=== PATIENT | female | born 1985 | race Caucasian/White ===

== ENCOUNTER 2017-10-29 17:02 | Observation (INO) | payer OTHER ==
[2017-10-29] MEDS ORDERED: GLYB2.5 PO (17:29)
[2017-10-29] MEDS ORDERED: FOLI1 PO (17:29)
[2017-10-29] MEDS ORDERED: PNV11TAB PO (17:29)
[2017-10-29] MEDS ORDERED: METHY250 PO (17:29)
[2017-10-29 17:30] VITALS: BP 159/83
[2017-10-29] MEDS ORDERED: BETAMETHASONE SOLUSPAN 6 MG/ML 5 ML VIAL IM SCH (17:30)
[2017-10-29] MEDS: NIFEdipine 10 MG CAPSULE PO SCH ×2 (17:50→22:00)
[2017-10-29 18:22] LABS: BASOPHILS % (AUTO) 0.3 % (0.0-2.0); EOSINOPHILS % (AUTO) 0.5 % (1.0-6.0); HEMATOCRIT 39.5 % (36-46); LYMPHOCYTES # (AUTO) 2.8 K/uL (1.0-4.8); MEAN CORPUSCULAR HEMOGLOBIN 34.2 pg (26.0-34.0); MEAN CORPUSCULAR HGB CONC 35.4 G/dL (31.0-37.0); MEAN CORPUSCULAR VOLUME 97 fL (80-100); MONOCYTES % (AUTO) 8.4 % (2.0-9.0); NEUTROPHILS # (AUTO) 8.3 K/uL (1.8-7.7); NEUTROPHILS % (AUTO) 67.8 % (40.0-70.0); PLATELET COUNT (AUTO) 220 K/uL (150-450); RED CELL DISTRIBUTION WIDTH 14.1 % (11.5-14.5)
[2017-10-29 18:33] LABS: ANION GAP 11 mmol/L (8-16); CALCIUM, TOTAL 8.7 mg/dL (8.8-10.5); CARBON DIOXIDE 23 mmol/L (22-29); CHLORIDE 103 mmol/L (98-107); CREATININE 0.62 mg/dL (0.60-1.30); GLOMERULAR FILTR. RATE CALC > 60 mL/min (>60); GLUCOSE,RANDOM 70 mg/dL (70-110); SODIUM SERUM 137 mmol/L (136-145); UREA NITROGEN, BLOOD 13 mg/dL (7-18)
[2017-10-29 18:47] LABS: ALANINE AMINOTRANSFERASE 28 U/L (12-78); ALBUMIN 2.4 g/dL (3.4-5.0); ALKALINE PHOSPHATASE 91 U/L (46-116); ASPARTATE AMINOTRANSFERASE 20 U/L (15-37); BILIRUBIN,TOTAL 0.2 mg/dL (0.1-1.0); FREE T4 (FREE THYROXINE) 0.57 ng/dL (0.76-1.46); THYROID STIMULATING HORMONE 5.29 uIU/mL (0.36-3.74); TOTAL PROTEIN, SERUM 6.1 g/dL (6.4-8.2)
[2017-10-29 19:00] LABS: URIC ACID 6.5 mg/dL (2.6-7.2)
[2017-10-29] MEDS: RINGERS SOLUTION,LACTATED 1,000 ML IV SCH ×2 (19:07→23:20)
[2017-10-29] MEDS ORDERED: METHYLDOPA 250 MG TABLET PO SCH (19:30)
[2017-10-29] MEDS ORDERED: NIFEdipine 10 MG CAPSULE PO ONE ×3 (19:45→22:45)
[2017-10-30] MEDS: NIFEdipine 10 MG CAPSULE PO SCH ×2 (02:03→09:22)
[2017-10-30] MEDS ORDERED: METHYLDOPA 250 MG TABLET PO SCH (04:00)
[2017-10-30] MEDS ORDERED: BETAMETHASONE SOLUSPAN 6 MG/ML 5 ML VIAL IM ONE (04:15)
[2017-10-30] MEDS ORDERED: MAGNESIUM SULFATE 500 ML IV SCH (04:43)
[2017-10-30] MEDS ORDERED: CALCIUM GLUCONATE 100 MG/ML 10 ML IVP PRN (04:45)
[2017-10-30] MEDS ORDERED: MAGNESIUM SULFATE 500 ML IV ONE (04:47)
[2017-10-30] MEDS ORDERED: NIFEdipine 10 MG CAPSULE PO PRN (06:15)
[2017-10-30 08:23] LABS: TPROTEIN TIMED,URINE 15 mg/dL
[2017-10-30 08:52] LABS: COLLECTION TIME,URINE 12 HR; TPROTEIN URINE 12HR CALC 203 mg/12HR (0-165)
[2017-10-30 08:54] LABS: GLUCOMETER DEV NAME(LOC) 4S 8; GLUCOSE,POINT OF CARE 115 MG/DL (70-110)
== END 2017-10-30 09:35 | disposition home health service (06) ==
LOC: 4S 17:02
PROVIDERS: ADMIT Obstetrics & Gynecology; ATTEND Obstetrics & Gynecology
DX: O24.419 Gestational diabetes mellitus in pregnancy, unspecified control (principal); O13.3 Gestational [pregnancy-induced] hypertension without significant proteinuria, third trimester; O14.13 Severe pre-eclampsia, third trimester; O76 Abnormality in fetal heart rate and rhythm complicating labor and delivery; O36.5930 Maternal care for other known or suspected poor fetal growth, third trimester, not applicable or unspecified; Z3A.30 30 weeks gestation of pregnancy
CPT/HCPCS: 36415; 59025 ×2; 76811; 80053; 81050; 82962; 84156; 84439; 84443; 84550; 85025; 96361 ×2; 96365; 96366; 96372 ×2; G0378 ×2; J0702 ×2; J3475; J7120 ×2; 96360